=== PATIENT | female | born 1945 | race Two or more races ===

== ENCOUNTER 2017-11-23 23:06 | Emergency (ER) | payer OTHER ==
[2017-11-23 23:16] VITALS: BP 141/79; PULSE 79; TEMP 98.2; BMI 24.2
--- NOTE | 2017-11-23 23:26 | PDOC ---
History of Present Illness - General Chief Complaint: Chest Pain Stated Complaint: CHEST PAIN Time Seen by Provider: 11/23/17 23:25 History Source: Patient - History of Present Illness Initial Comments: 11/23/17 23:42 72 year old female recently diagnosed with Influenza currently on tamiflu reports several bouts of diarrhea and palpitations prior to arrival. reports that palpitations has been resolved however feels weak. as per son patient often gets palpitations which self resolves. Son is not sure if this is anxiety related. 11/24/17 01:51 Past History - Past Medical History Allergies/Adverse Reactions: Allergies Allergy/AdvReac Type Severity Reaction Status Date / Time No Known Allergies Allergy Verified 11/23/17 23:09 Home Medications: Ambulatory Orders Lisinopril [Zestril] 5 mg PO DAILY 11/23/17 Metoprolol Succinate [Toprol Xl -] 25 mg PO DAILY 11/23/17 Oseltamivir Phosphate [Tamiflu] 75 mg PO BID 11/23/17 Cephalexin Monohydrate [Keflex -] 500 mg PO BID #20 capsule 11/24/17 Saccharomyces Boulardii [Florastor] 250 mg PO BID #20 capsule 11/24/17 COPD: No HTN: Yes Other medical history: flu 2018 - Suicide/Smoking/Psychosocial Hx Smoking History: Never smoked Review of Systems - Review of Systems Able to Perform ROS?: Yes Is the patient limited Nepali proficient: No Constitutional: Yes: Weakness. No: Symptoms Reported, See HPI, Chills, Diaphoresis, Fever, Loss of Appetite, Malaise, Night Sweats (generalized), Weight Stable, Unintentional Wgt. Loss, Unexplained wgt Loss, Other Respiratory: No: Symptoms reported, See HPI, Cough, Orthopnea, Shortness of Breath, SOB with Exertion, SOB at Rest, Stridor, Wheezing, Productive cough, Hemoptysis, Other Cardiac (ROS): Yes: Irregular Heart Rate. No: Symptoms Reported, See HPI, Chest Pain, Edema, Lightheadedness, Palpitations, Syncope, Chest Tightness, Other ABD/GI: Yes: Diarrhea. No: Symptoms Reported, See HPI, Abdominal Distended, Abd. Pain w/ defecation, Blood Streaked Bowels, Constipated, Difficulty Swallowing, Nausea, Poor Appetite, Poor Fluid Intake, Rectal Bleeding, Vomiting , Indigestion, Abdominal cramping, Tarry Stools, Other *Physical Exam - Vital Signs Last Vital Signs Temp Pulse Resp BP Pulse Ox 98.2 F 79 18 141/79 98 11/23/17 23:12 11/23/17 23:12 11/23/17 23:12 11/23/17 23:12 11/23/17 23:12 - Physical Exam General Appearance: Yes: Appropriately Dressed Respiratory/Chest: positive: Lungs Clear, Normal Breath Sounds Cardiovascular: positive: Regular Rhythm, Regular Rate Gastrointestinal/Abdominal: positive: Normal Bowel Sounds, Soft Extremity: positive: Normal Capillary Refill, Normal Inspection, Normal Range of Motion Integumentary: positive: Normal Color, Dry, Warm Neurologic: positive: Fully Oriented, Alert, Normal Mood/Affect ED Treatment Course - LABORATORY CBC & Chemistry Diagram: 11/23/17 23:45 11/23/17 23:45 - ADDITIONAL ORDERS Additional order review: Laboratory Results 11/24/17 11/23/17 01:00 23:45 Sodium 138 Potassium 4.0 Chloride 102 Carbon Dioxide 25 Anion Gap 11 BUN 16 Creatinine 0.7 Creat Clearance w eGFR > 60 Random Glucose 128 H Calcium 8.4 L Total Bilirubin 0.8 AST 15 ALT 15 Alkaline Phosphatase 66 Creatine Kinase 58 Troponin I < 0.02 Total Protein 7.2 Albumin 3.6 Urine Color Straw Urine Appearance Clear Urine pH 6.0 Ur Specific [place] 1.004 Urine Protein Negative Urine Glucose (UA) Negative Urine Ketones Negative Urine Blood Negative Urine Nitrite Negative Urine Bilirubin Negative Urine Urobilinogen Negative Ur Leukocyte Esterase 2+ H Urine WBC (Auto) 11 Urine RBC (Auto) 1 Ur Epithelial Cells Rare 11/23/17 23:45 RBC 4.18 MCV 92.5 MCHC 34.6 RDW 12.6 MPV 7.9 Neutrophils % 67.5 Lymphocytes % 23.3 Monocytes % 8.6 Eosinophils % 0.3 Basophils % 0.3 - Medications Given in the ED: ED Medications Discontinued Medications Generic Name Dose Route Start Last Admin Trade Name Freq PRN Reason Stop Dose Admin Sodium Chloride 500 mls @ 500 mls/hr 11/23/17 23:41 11/24/17 00:04 Normal Saline - IV 11/24/17 00:40 500 mls/hr ASDIR STA Administration Progress Note - Progress Note Progress Note: A: Palpitations P: cbc cmp cardiac enzymes *DC/Admit/Observation/Transfer Diagnosis at time of Disposition: Palpitations UTI (urinary tract infection) Qualifiers: Urinary tract infection type: acute cystitis Hematuria presence: without hematuria Qualified Code(s): N30.00 - Acute cystitis without hematuria - Discharge Dispostion Disposition: HOME - Prescriptions Prescriptions: Cephalexin Monohydrate [Keflex -] 500 mg PO BID #20 capsule Saccharomyces Boulardii [Florastor] 250 mg PO BID #20 capsule - Referrals - Patient Instructions Printed Discharge Instructions: DI for Chest Pain Additional Instructions: drink plenty of fluids. take cephalexin as prescribed. follow up with your doctor as soon as possible. - Post Discharge Activity
[2017-11-23] MEDS ORDERED: SODIUM CHLORIDE 500 ML IV STA (23:41)
[2017-11-24 00:09] LABS: BASO % 0.3 % (0-2.0); EOS % 0.3 % (0-4.5); HEMATOCRIT 38.7 % (32.4-45.2); HEMOGLOBIN 13.4 GM/dL (10.7-15.3); LYMPH % 23.3 % (8-40); MCHC 34.6 g/dl (32.0-36.0); MEAN CELL VOLUME 92.5 fl (80-96); MEAN PLT VOLUME 7.9 fl (7.5-11.1); MONO % 8.6 % (3.8-10.2); NEUT % 67.5 % (42.8-82.8); PLATELET COUNT 154 K/MM3 (134-434); RBC 4.18 M/mm3 (3.60-5.2); RDW 12.6 % (11.6-15.6); WHITE BLOOD COUNT 4.6 K/mm3 (4.0-10.0)
[2017-11-24 00:37] LABS: ALBUMIN 3.6 g/dl (3.4-5.0); ANION GAP 11 (8-16); BILIRUBIN,TOTAL 0.8 mg/dL (0.2-1.0); BLOOD UREA NITROGEN 16 mg/dL (7-18); CALCIUM 8.4 mg/dL (8.5-10.1); CHLORIDE 102 mmol/L (98-107); CO2 25 mmol/L (21-32); CREATININE 0.7 mg/dL (0.55-1.02); GLUCOSE,RANDOM 128 mg/dL (74-106); SGOT/AST 15 U/L (15-37); SGPT/ALT 15 U/L (12-78); SODIUM 138 mmol/L (136-145); TOT PROT 7.2 g/dl (6.4-8.2)
[2017-11-24 00:40] LABS: ALK PHOS 66 U/L (45-117)
[2017-11-24 01:11] LABS: URINE APPEARANCE CLEAR; URINE BILIRUBIN NEGATIVE (NEGATIVE); URINE BLOOD NEGATIVE (NEGATIVE); URINE COLOR STRAW; URINE GLUCOSE (UA) NEGATIVE (NEGATIVE); URINE KETONE NEGATIVE (NEGATIVE); URINE NITRITE NEGATIVE (NEGATIVE); URINE PROTEIN NEGATIVE (NEGATIVE); URINE UROBILINOGEN NEGATIVE mg/dL (0.2-1.0)
[2017-11-24 01:18] LABS: URINE LEUK ESTERASE 2+ (NEGATIVE)
[2017-11-24 01:21] LABS: EPI CELLS RARE /HPF (FEW)
[2017-11-24] MEDS ORDERED: CEPHALEXIN MONOHYDRATE 500 MG CAPSULE (UD) PO ONE (01:48)
[2017-11-24] MEDS ORDERED: CEPHALEXIN MONOHYDRATE 250 MG CAPSULE (FP) ONE (02:09)
--- NOTE | 2017-11-24 15:08 | EKG ---
Test Reason : Blood Pressure : / mmHG Vent. Rate : 079 BPM Atrial Rate : 079 BPM P-R Int : 174 ms QRS Dur : 100 ms QT Int : 392 ms P-R-T Axes : 062 005 012 degrees QTc Int : 449 ms NORMAL SINUS RHYTHM NORMAL ECG WHEN COMPARED WITH ECG OF 21-MAR-2008 21:11, T WAVE INVERSION NOW EVIDENT IN ANTERIOR LEADS Confirmed by MD Awan Daniel ([id number]) on 11/24/2017 3:07:53 PM Referred By: Confirmed By:Bradley Awan MD
== END 2017-11-24 02:20 | disposition home or self-care (01) ==
LOC: JER 23:06
PROC: 3E0337Z Introduction of Electrolytic and Water Balance Substance into Peripheral Vein, Percutaneous Approach (ICD-10-PCS; principal; 2017-11-23)
DX: R00.2 Palpitations (principal); N30.00 Acute cystitis without hematuria
CPT/HCPCS: 36415; 80053; 81003; 81015; 82550; 84484; 85025; 93005; 93010; 96360; 99283-25